=== PATIENT | male | born 1995 | race Caucasian/White ===

== ENCOUNTER 2016-11-12 00:55 | Emergency (ER) | payer OTHER ==
[2016-11-12 01:13] VITALS: BMI 26.6
--- NOTE | 2016-11-12 01:14 | PDOC ---
History of Present Illness - General History Source: Patient Exam Limitations: No Limitations - History of Present Illness Initial Comments: 11/12/16 01:29 The patient is a 21 year old male with no significant past medical history who presents to the ED with throat pain and fever for one day. The patient reports a fever of 102 F and throat pain secondary to swallowing. The patient also reports a sharp headache in the back of his head, loss of appetite, and arthralgia associated with present symptoms. He states his baby has otitis media at home. He reports taking tylenol and motrin throughout the day. Denies chest pain or shortness of breath. Denies nausea, vomiting, or diarrhea. Denies dysuria or changes in urinary frequency. Denies any other symptoms. <Deisi Auguste - Last Filed: 11/12/16 01:28> <Carol Choi - Last Filed: 11/12/16 05:02> - General Chief Complaint: SIRS, Suspected/Possible Stated Complaint: FEVER,HEADACE Time Seen by Provider: 11/12/16 01:07 Past History <Deisi Auguste - Last Filed: 11/12/16 01:28> - Psycho/Social/Smoking Cessation Hx Anxiety: Yes Suicidal Ideation: No Smoking Status: No Smoking History: Never smoked Have you smoked in the past 12 months: No Number of Cigarettes Smoked Daily: 0 Information on smoking cessation initiated: No Hx Alcohol Use: No Drug/Substance Use Hx: No Substance Use Type: None <Carol Choi - Last Filed: 11/12/16 05:02> - Past Medical History Allergies/Adverse Reactions: Allergies Allergy/AdvReac Type Severity Reaction Status Date / Time No Known Allergies Allergy Verified 11/12/16 01:10 Home Medications: Ambulatory Orders No Home Medications 0 dose .ROUTE UTDICT 05/24/12 Ibuprofen [Motrin -] 600 mg PO QID #28 tablet 04/13/16 Review of Systems - Review of Systems Able to Perform ROS?: Yes Comments:: 11/12/16 01:29 CONSTITUTIONAL: + fever, loss of appetite Absent: diaphoresis, generalized weakness, malaise HEENT: + throat pain Absent: rhinorrhea, nasal congestion, throat swelling, difficulty swallowing, mouth swelling, ear pain, eye pain, visual Changes CARDIOVASCULAR: Absent: chest pain, syncope, palpitations, irregular heart rate, lightheadedness , peripheral edema RESPIRATORY: Absent: cough, shortness of breath, dyspnea with exertion, orthopnea, wheezing, stridor, hemoptysis GASTROINTESTINAL: Absent: abdominal pain, abdominal distension, nausea, vomiting, diarrhea, constipation, melena, hematochezia GENITOURINARY: Absent: dysuria, frequency, urgency, hesitancy, hematuria, flank pain, genital pain MUSCULOSKELETAL: + arthralgia Absent: myalgia, joint swelling SKIN: Absent: rash, itching, pallor HEMATOLOGIC/IMMUNOLOGIC: Absent: easy bleeding, easy bruising, lymphadenopathy, frequent infections ENDOCRINE: Absent: unexplained weight gain, unexplained weight loss, heat intolerance, cold intolerance NEUROLOGIC: + headache Absent: focal weakness or paresthesias, dizziness, unsteady gait, seizure, mental status changes, bladder or bowel incontinence PSYCHIATRIC: Absent: anxiety, depression, suicidal or homicidal ideation, hallucinations. All Other Systems: Reviewed and Negative <Deisi Auguste - Last Filed: 11/12/16 01:28> *Physical Exam - Vital Signs Last Vital Signs Temp Pulse Resp BP Pulse Ox 102.5 F H 106 H 16 123/67 100 11/12/16 01:11 11/12/16 01:11 11/12/16 01:11 11/12/16 01:11 11/12/16 01:11 - Physical Exam Comments: 11/12/16 01:29 GENERAL: + Moderate distress, high fever. Awake and alert. HEENT: + Throat pain. Normocephalic, atraumatic. PERRLA, EOMI. No conjunctival pallor. Sclera are non-icteric. Moist mucous membranes. Oropharynx is clear. NECK: ,No neck stiffness, no pain with movement of neck. Full ROM. No JVD. Carotid pulses 2+ and symmetric, without bruits. No thyromegaly. NCo lymphadenopathy. CARDIOVASCULAR: Regular rate and rhythm. No murmurs, rubs, or gallops. Distal pulses are 2+ and symmetric. PULMONARY: No evidence of respiratory distress. Lungs clear to auscultation bilaterally. No wheezing, rales or rhonchi. ABDOMINAL: Soft. Non-tender. Non-distended. No rebound or guarding. No organomegaly. Normoactive bowel sounds. MUSCULOSKELETAL + arthralgia. Normal range of motion at all joints. No bony deformities or tenderness. No CVA tenderness. EXTREMITIES: No cyanosis. No clubbing. No edema. No calf tenderness. SKIN: Warm and dry. Normal capillary refill. No rashes. No jaundice. NEUROLOGICAL: Alert, awake, appropriate. Cranial nerves 2-12 intact. No deficits to light touch and temperature in face, upper extremities and lower extremities. No motor deficits in the in face, upper extremities and lower extremities. Normoreflexic in the upper and lower extremities. Normal speech. Toes are down- going bilaterally. Gait is normal without ataxia. PSYCHIATRIC: Cooperative. Good eye contact. Appropriate mood and affect. <Deisi Auguste - Last Filed: 11/12/16 01:28> - Vital Signs Last Vital Signs Temp Pulse Resp BP Pulse Ox 102.5 F H 106 H 16 123/67 100 11/12/16 01:11 11/12/16 01:11 11/12/16 01:11 11/12/16 01:11 11/12/16 01:11 <Carol Choi - Last Filed: 11/12/16 05:02> ED Treatment Course - Medications Given in the ED: ED Medications Discontinued Medications Generic Name Dose Route Start Last Admin Trade Name Freq PRN Reason Stop Dose Admin Acetaminophen 1,000 mg 11/12/16 01:19 11/12/16 01:26 Tylenol - PO 11/12/16 01:20 1,000 mg ONCE ONE Administration Ketorolac Tromethamine 30 mg 11/12/16 01:19 11/12/16 01:24 Toradol Injection - IVPUSH 11/12/16 01:20 30 mg ONCE ONE Administration Sodium Chloride 1,000 ml 11/12/16 01:23 11/12/16 01:24 Normal Saline - IV 11/12/16 01:24 1,000 ml ONCE ONE Administration <Deisi Auguste - Last Filed: 11/12/16 01:28> - LABORATORY CBC & Chemistry Diagram: 11/12/16 01:25 11/12/16 01:25 <Carol Choi - Last Filed: 11/12/16 05:02> Medical Decision Making - Medical Decision Making 11/12/16 02:11 Patient Name: Norman Ray THIS IS A PRELIMINARYREPORT FROM [facility] EXAM : CT brain without contrast IMAGES: 75 INDICATION: Rule out meningitis DATE OF SERVICE: 2016-11-12 01:39:04.0 COMPARISON: none FINDINGS: The ventricular system is midline and nondilated. The sulcal pattern is normal for the patient' s age. There is no bleed, mass, extra-axial fluid collection or mass effect. No skull fracture or skull lesion is identified. The visualized paranasal sinuses and mastoid air cells are clear. IMPRESSION: Normal exam. THIS DOCUMENT HAS BEEN ELECTRONICALLY SIGNED 11/12/16 05:01 Pt comes with fever and sore throat. His baby has an OM. [place] likely contracted the baby's illness. Pt has viral syndrome and complains of high fever and joint pains. His rapid strep is normal. Labs are normal, except for WBC 17+. He feels and looks vastly improved after analgesia and NSS 2000ml in the ER. <Carol Choi - Last Filed: 11/12/16 05:02> *DC/Admit/Observation/Transfer - Attestations Scribe Attestion: 11/12/16 01:29 Documentation prepared by Deisi Auguste, acting as medical and health services manager for Carol Choi MD <Deisi Auguste - Last Filed: 11/12/16 01:28> - Discharge Dispostion Admit: No <Carol Choi - Last Filed: 11/12/16 05:02> Diagnosis at time of Disposition: Acute viral syndrome - Discharge Dispostion Disposition: HOME Condition at time of disposition: Improved - Patient Instructions Printed Discharge Instructions: DI for Viral Syndrome Print Language: CYPRIOT - Post Discharge Activity Work/School Note: Back to Work
[2016-11-12] MEDS ORDERED: KETOROLAC TROMETHAMINE 30 MG/1 ML VIAL IVPUSH ONE (01:19)
[2016-11-12] MEDS ORDERED: ACETAMINOPHEN 500 MG TABLET (FP) PO ONE (01:19)
[2016-11-12] MEDS ORDERED: SODIUM CHLORIDE 0.9% 500 ML INFUS.BAG IV ONE (01:23)
[2016-11-12] MEDS ORDERED: KETOROLAC TROMETHAMINE 30 MG/1 ML VIAL ONE (01:25)
[2016-11-12] MEDS ORDERED: ACETAMINOPHEN INJECTION 100 ML IVPB ONE (01:25)
[2016-11-12 01:32] LABS: BASOPHIL 0.8 % (0-2.0); EOSINOPHIL 0.9 % (0-4.5); MCH 28.4 pg (25.7-33.7); MCHC 33.9 g/dl (32.0-35.9); MEAN CELL VOLUME 83.7 fl (80-96); MEAN PLT VOLUME 10.3 fl (7.5-11.1); NEUTROPHILS 79.4 % (42.8-82.8); PLATELET COUNT 152 K/MM3 (134-434); RDW 12.4 % (11.9-15.9)
[2016-11-12 01:59] LABS: ALBUMIN 3.8 g/dl (3.4-5.0); ALK PHOS 164 U/L (45-117); ANION GAP 11 (8-16); BILIRUBIN,TOTAL 0.6 mg/dL (0.2-1.0); CO2 26 mmol/L (21-32); COCKROFT - GAULT 99.95; CREATININE 1.2 mg/dL (0.7-1.3); GLUCOSE,RANDOM 133 mg/dL (74-106); SGOT/AST 17 U/L (15-37); SGPT/ALT 14 U/L (12-78); TOT PROT 7.2 g/dl (6.4-8.2)
[2016-11-12 02:29] LABS: INR 1.14 (0.82-1.09); PROTHROMBIN TIME (PATIENT) 12.6 SEC (9.98-11.88)
[2016-11-12 04:12] VITALS: BP 110/63; PULSE 74; TEMP 98.6
== END 2016-11-12 04:20 | disposition home or self-care (01) ==
LOC: JER 00:55
PROC: 3E0333Z Introduction of Anti-inflammatory into Peripheral Vein, Percutaneous Approach (ICD-10-PCS; principal; 2016-11-12)
DX: B34.9 Viral infection, unspecified (principal)
CPT/HCPCS: 36415; 70450-TC; 71020-TC; 80053; 83605; 85025; 85610; 85730; 87040; 87070; 87430; 96374; 99282-25

== ENCOUNTER 2016-11-13 11:42 | Emergency (ER) | payer OTHER ==
[2016-11-13 12:03] VITALS: BP 145/76; PULSE 81; TEMP 98.5; BMI 26.6
[2016-11-13] MEDS ORDERED: KETOROLAC TROMETHAMINE 60 MG/2 ML VIAL IM ONE (12:49)
[2016-11-13] MEDS ORDERED: KETOROLAC TROMETHAMINE 60 MG/2 ML VIAL ONE (12:51)
--- NOTE | 2016-11-13 12:52 | PDOC ---
History of Present Illness - General Chief Complaint: Cold Symptoms Stated Complaint: FEVER, COUGH, HEADACHE Time Seen by Provider: 11/13/16 12:14 History Source: Patient Exam Limitations: No Limitations - History of Present Illness Initial Comments: 11/13/16 12:49 21 yr male with c/o sore throat fever for 3 days. Pt states he was seen here had negative strep negative head CT, labs were done. Pt states he took tylenol this AM. no nvd, no chest pain or shortness of breath. no foreign travel. Pt was seen here last week for same had blood work and cxr , rap[place] trep done which was negative. pt denies dizzyness or vision changes. 11/13/16 18:44 Severity: reports: mild Past History - Past Medical History Allergies/Adverse Reactions: Allergies Allergy/AdvReac Type Severity Reaction Status Date / Time No Known Allergies Allergy Verified 11/13/16 12:03 Home Medications: Ambulatory Orders Azithromycin [Zithromax 250mg Tablets -] 250 mg PO UTDICT #6 tab 11/13/16 Fluticasone Prop 0.05% Nasal [Flonase -] 1 - 2 spray NS DAILY #1 spray.pump Other medical history: denies - Family Disease History Comment:: 11/13/16 12:50 none - Immunization History Immunization Up to Date: No - Psycho/Social/Smoking Cessation Hx Anxiety: Yes Suicidal Ideation: No Smoking Status: No Smoking History: Never smoked Have you smoked in the past 12 months: No Number of Cigarettes Smoked Daily: 0 Information on smoking cessation initiated: No Hx Alcohol Use: No Drug/Substance Use Hx: No Substance Use Type: None Respiratory Specific PMHX - Complaint Specific PMHX Angina: No Bronchitis: No Pneumonia: No Pulmonary Embolus: No TB (Tuberculosis): No Review of Systems - Review of Systems Able to Perform ROS?: Yes Comments:: 11/13/16 12:50 11/13/16 12:50 Is the patient limited Wolof proficient: No Constitutional: Yes: Symptoms Reported HEENTM: Yes: Symptoms Reported, Nose Congestion Respiratory: Yes: Symptoms reported, Cough Cardiac (ROS): No: Symptoms Reported ABD/GI: No: Symptoms Reported : No: Symptoms Reported Musculoskeletal: No: Symptoms Reported Integumentary: No: Symptoms Reported Neurological: No: Symptoms reported *Physical Exam - Vital Signs Last Vital Signs Temp Pulse Resp BP Pulse Ox 98.5 F 81 18 145/76 100 11/13/16 12:01 11/13/16 12:01 11/13/16 12:01 11/13/16 12:01 11/13/16 12:01 - Physical Exam General Appearance: Yes: Nourished, Appropriately Dressed HEENT: positive: EOMI, MARCE, Pharyngeal Erythema, Nasal Congestion. negative: Tonsillar Exudate, Tonsillar Erythema, Rhinorrhea, Sinus Tenderness Neck: positive: Supple. negative: Lymphadenopathy (R), Lymphadenopathy (L) Respiratory/Chest: positive: Lungs Clear, Normal Breath Sounds, Rhonchi ( scattered cleared with coughing ). 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pump Azithromycin [Zithromax 250mg Tablets -] 250 mg PO UTDICT #6 tab - Patient Instructions Printed Discharge Instructions: DI for Viral Upper Respiratory Infection -- Adult Additional Instructions: drink pleanty of water, increase your vitamin C and Zinc intake take motrin 600mg every 6hrs for pain or fever take the Zpack as directed for 5 days follow with your doctor or with the ENT doctor for follow up - Post Discharge Activity Work/School Note: Back to School, Back to Work
== END 2016-11-13 13:35 | disposition home or self-care (01) ==
LOC: JERFT 11:42
DX: J06.9 Acute upper respiratory infection, unspecified (principal); B97.89 Other viral agents as the cause of diseases classified elsewhere
CPT/HCPCS: 87070; 87430; 99281-25

== ENCOUNTER 2018-06-07 00:49 | Observation (INO) | payer OTHER ==
[2018-06-07 01:01] VITALS: TEMP 97.9; BMI 22.8
[2018-06-07] MEDS ORDERED: SODIUM CHLORIDE 1,000 ML IV STA (01:56)
[2018-06-07] MEDS ORDERED: FAMOTIDINE 20 MG/50 ML IVPB 20 MG/50 ML MG IVPB ONE ×2 (01:56→02:03)
[2018-06-07] MEDS ORDERED: methylPREDNISolone NA SUCC 125 MG/2 ML VIAL IVPB ONE (01:56)
--- NOTE | 2018-06-07 01:56 | PDOC ---
History of Present Illness - General Chief Complaint: Allergic Reaction Stated Complaint: ALLERGIC REACTION Time Seen by Provider: 06/07/18 01:55 History Source: Patient Exam Limitations: No Limitations - History of Present Illness Initial Comments: 06/07/18 02:21 Best Contact: PCP: Denies Pmhx:Denies Pshx:Denies Allergies:NKDA FH:0 Social Hx: Cigarettes/ Denies Alcohol/ social Drugs/Denies 23-year-old male presents to the ER with his parents complaining of a rash 2 days. 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 Patient states he noticed the hives spread to his cx/abdomen/back, BLE. Pt reports he comes to the ER tongiht when he noticed his upper lipand tongue was swollen. Patient denies fever, chills, nausea/vomiting, headache, dizziness, lightheadedness, facial pains, earache, sore throat, difficulty swallowing, neck pain/stiffness, back pains, chest pain, shortness of breath, abdominal pains, flank pains, urinary symptoms, Jeremi numbness or tingling sensation. Patient denies taking Benadryl or increases intake and fluids.Patient denies use of new medication, detergent, soap, cologne, food. Past History - Past Medical History Allergies/Adverse Reactions: Allergies Allergy/AdvReac Type Severity Reaction Status Date / Time No Known Allergies Allergy Verified 06/07/18 01:01 Home Medications: Ambulatory Orders Fluticasone Prop 0.05% Nasal [Flonase -] 1 - 2 spray NS DAILY #1 spray.pump Diphenhydramine HCl [Benadryl -] 50 mg PO Q6H #28 capsule 06/07/18 Ranitidine HCl [Zantac] 150 mg PO DAILY #5 tablet 06/07/18 predniSONE [Deltasone -] 60 mg PO DAILY #15 tablet 06/07/18 COPD: Yes - Immunization History Immunization Up to Date: Yes - Suicide/Smoking/Psychosocial Hx Smoking Status: No Smoking History: Never smoked Have you smoked in the past 12 months: No Number of Cigarettes Smoked Daily: 0 Information on smoking cessation initiated: No Hx Alcohol Use: No Drug/Substance Use Hx: No Substance Use Type: None Review of Systems - Review of Systems Able to Perform ROS?: Yes Comments:: 06/07/18 02:24 CONSTITUTIONAL: Absent: fever, chills, diaphoresis, generalized weakness, malaise, loss of appetite HEENT: Absent: rhinorrhea, nasal congestion, throat pain, throat swelling, difficulty swallowing, mouth swelling, ear pain, eye pain, visual Changes CARDIOVASCULAR: Absent: chest pain, loss of consciousness, palpitations, irregular heart rate, peripheral edema RESPIRATORY: Absent: cough, shortness of breath, dyspnea with exertion, orthopnea, wheezing, stridor, hemoptysis GASTROINTESTINAL: Absent: abdominal pain, abdominal distension, nausea, vomiting, diarrhea, constipation, melena, hematochezia GENITOURINARY: Absent: dysuria, frequency, urgency, hesitancy, hematuria, flank pain, genital pain MUSCULOSKELETAL: Absent: myalgia, arthralgia, joint swelling SKIN: +hives to neck, cx/ abd, back and legs Absent: itching, pallor HEMATOLOGIC/IMMUNOLOGIC: Absent: easy bleeding, easy bruising, lymphadenopathy, frequent infections ENDOCRINE: Absent: unexplained weight gain, unexplained weight loss, heat intolerance, cold intolerance NEUROLOGIC: Absent: headache, focal weakness or paresthesias, dizziness, unsteady gait, seizure, mental status changes, bladder or bowel incontinence Is the patient limited Uzbek proficient: No *Physical Exam - Vital Signs Last Vital Signs Temp Pulse Resp BP Pulse Ox 97.9 F 89 18 117/76 99 06/07/18 00:58 06/07/18 00:58 06/07/18 00:58 06/07/18 00:58 06/07/18 00:58 - Physical Exam Comments: 06/07/18 02:25 GENERAL: Well developed, well nourished. Awake and alert. No acute distress. HEENT: Normocephalic, atraumatic. PERRLA, EOMI. No conjunctival pallor. Sclera are non- icteric. Moist mucous membranes. Oropharynx is clear. NECK: Supple. Full ROM. No JVD. Carotid pulses 2+ and symmetric, without bruits. No thyromegaly. No lymphadenopathy. CARDIOVASCULAR: Regular rate and rhythm. No murmurs, rubs, or gallops. Distal pulses are 2+ and symmetric. PULMONARY: No evidence of respiratory distress. Lungs clear to auscultation bilaterally. No wheezing, rales or rhonchi. ABDOMINAL: Soft. Non-tender. Non-distended. No rebound or guarding. No organomegaly. Normoactive bowel sounds. MUSCULOSKELETAL Normal range of motion at all joints. No bony deformities or tenderness. No CVA tenderness. EXTREMITIES: No cyanosis. No clubbing. No edema. No calf tenderness. SKIN: +hives to right side of int neck, left upper abd, and right calf Negative lymphangitis Warm and dry. Normal capillary refill. No rashes. No jaundice. NEUROLOGICAL: Alert, awake, appropriate. Cranial nerves 2-12 intact. No deficits to light touch and temperature in face, upper extremities and lower extremities. No motor deficits in the in face, upper extremities and lower extremities. Normoreflexic in the upper and lower extremities. Normal speech. Toes are down- going bilaterally. Gait is normal without ataxia. PSYCHIATRIC: Cooperative. Good eye contact. Appropriate mood and affect. Moderate Sedation - Procedure Monitoring Vital Signs: Procedure Monitoring Vital Signs Temperature 97.9 F 06/07/18 00:58 Pulse Rate 89 06/07/18 00:58 Respiratory Rate 18 06/07/18 00:58 Blood Pressure 117/76 06/07/18 00:58 O2 Sat by Pulse Oximetry (%) 99 06/07/18 00:58 ED Treatment Course - LABORATORY CBC & Chemistry Diagram: 06/07/18 04:18 06/07/18 04:18 *DC/Admit/Observation/Transfer Diagnosis at time of Disposition: Hives of unknown origin, Tongue swelling Allergic reaction Qualifiers: Encounter type: initial encounter Qualified Code(s): T78.40XA - Allergy, unspecified, initial encounter - Discharge Dispostion Condition at time of disposition: Guarded Decision to Admit order: Yes - Prescriptions - Referrals - Patient Instructions - Post Discharge Activity Progress Note - Progress Note Progress Note: 0346hrs: Pt states his tongue still feels swollen along with his upper lip. 0421hrs: admit to hospitalist/obs
[2018-06-07] MEDS ORDERED: methylPREDNISolone NA SUCC 125 MG/2 ML VIAL ONE ×2 (02:03→02:04)
[2018-06-07 04:37] LABS: BASO % 0.5 % (0-2.0); EOS % 0.9 % (0-4.5); LYMPH % 18.8 % (8-40); MCH 29.6 pg (25.7-33.7); MCHC 35.6 g/dl (32.0-35.9); MEAN PLT VOLUME 10.5 fl (7.5-11.1); MONO % 2.3 % (3.8-10.2); NEUT % 77.5 % (42.8-82.8); PLATELET COUNT 193 K/MM3 (134-434); RBC 5.06 M/mm3 (4.00-5.60); RDW 12.4 % (11.9-15.9); WHITE BLOOD COUNT 9.8 K/mm3 (4.0-10.0)
[2018-06-07 05:04] LABS: ALBUMIN 3.3 g/dl (3.4-5.0); ALK PHOS 149 U/L (45-117); ANION GAP 6 MMOL/L (8-16); BILIRUBIN,TOTAL 0.3 mg/dL (0.2-1); BLOOD UREA NITROGEN 13 mg/dL (7-18); CALCIUM 8.3 mg/dL (8.5-10.1); CHLORIDE 109 mmol/L (98-107); CO2 25 mmol/L (21-32); CREATININE 1.1 mg/dL (0.55-1.3); GLUCOSE,RANDOM 124 mg/dL (74-106); POTASSIUM 4.6 mmol/L (3.5-5.1); SGOT/AST 25 U/L (15-37); SGPT/ALT 21 U/L (13-61); SODIUM 140 mmol/L (136-145); TOT PROT 6.5 g/dl (6.4-8.2)
--- NOTE | 2018-06-07 05:09 | PN ---
Teaching Attending Note Name of Resident: Chelsea Lowry ATTENDING PHYSICIAN STATEMENT I saw and evaluated the patient. I reviewed the resident's note and discussed the case with the resident. I agree with the resident's findings and plan as documented. SUBJECTIVE: Patient is a 23-year-old man with no significant PMH who presents to the ER with his parents complaining of a rash 2 days. 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 Patient states he noticed the hives spread to his chest/abdomen/back, BLE. Came to the ER tongiht when he noticed his upper lip and tongue was swollen. Patient denies fever, chills, nausea/vomiting , headache, dizziness, lightheadedness, facial pains, earache, sore throat, difficulty swallowing, neck pain/stiffness, back pains, chest pain, shortness of breath, abdominal pains, flank pains, urinary symptoms, numbness or tingling sensation. Patient denies taking Benadryl or increases intake and fluids.Patient denies use of new medication, detergent, soap, cologne, food. OBJECTIVE: Alert Vital Signs Period Temp Pulse Resp BP Sys/Manuel Pulse Ox Last 24 Hr 97.9 F 89 18 117/76 98-99 HEENT: No Jaundice, eye redness or discharge, PERRLA, EOMI. Normocephalic, atraumatic. External ears are normal and hearing is grossly intact. No nasal discharge. Neck: Supple, nontender. No palpable adenopathy or thyromegaly. No JVD. Mild anterior neck rash. Chest: Good effort. Clear to auscultation and percussion. Heart: Regular. No S3, rub or murmur Abdomen: Not distended, soft, nontender and no HSM. No rebound or guarding. Normoactive bowel sounds. Ext: Peripheral pulses intact. No leg edema. Skin: Warm and dry. No petechiae, rash or ecchymosis. Neuro: Alert. Oriented x3. CN 2-12 grossly intact. Sensation grossly intact in all four extremities and DTR are symmetric. Home Medications Medication Instructions Recorded Fluticasone Prop 0.05% Nasal 1 - 2 spray NS DAILY #1 spray.pump 05/30/17 [Flonase -] Diphenhydramine HCl [Benadryl -] 50 mg PO Q6H #28 capsule 06/07/18 Ranitidine HCl [Zantac] 150 mg PO DAILY #5 tablet 06/07/18 predniSONE [Deltasone -] 60 mg PO DAILY #15 tablet 06/07/18 Abnormal Lab Results 06/07/18 06/07/18 04:18 04:18 Monocytes % 2.3 L Chloride 109 H Anion Gap 6 L Random Glucose 124 H Calcium 8.3 L Alkaline Phosphatase 149 H Albumin 3.3 L ASSESSMENT AND PLAN: 1. Allergic Reaction - The inciting agent remains unclear. ESR, C reactive protein and LFTs are normal. C4 level pending. He responded well o the intial dose of solumedrol, benadrl and pepcid in the ER. By the time i saw him he was comfortable - tongue and lip edema resolved. Will continue IV fluids, benadryl and prednisone. Urine toxicology screen is pending. Refer to performance specialist upon discharge. 2. DVT prophylaxis - Lovenox 40 mg SQ q 24 hours. 3. Advance directives - Full code
[2018-06-07 05:40] LABS: URINE APPEARANCE CLEAR; URINE BILIRUBIN NEGATIVE (<2.0 mg/dL); URINE COLOR COLORLESS; URINE GLUCOSE (UA) NEGATIVE (NEGATIVE); URINE KETONE NEGATIVE (NEGATIVE); URINE LEUK ESTERASE NEGATIVE (NEGATIVE); URINE NITRITE NEGATIVE (NEGATIVE); URINE PROTEIN NEGATIVE (NEGATIVE); URINE UROBILINOGEN NEGATIVE mg/dL (0.2-1.0)
--- NOTE | 2018-06-07 05:59 | HP ---
CHIEF COMPLAINT: rash, swollen lips PCP: none HISTORY OF PRESENT ILLNESS: The patient is a 23 year old male with no PMH that presented to ED complaining of rash that started 2 days ago while he was at work. He was in his usual state of health, when around 11 AM on , while he was welding, he noticed rash on his neck and itching. The patient developed hives all over his body, but continued to work. The patient rash didn't improved so he decided to come to the hospital overnight. On the way to ED, he noticed swollen lips. When I saw the patient in Emergency Room, he was only complaining of swollen lips, his rash disappeared, denied itching. He denies allergies, never had similar rash in the past, denies exposures to detergents, changing housing in the past weeks , no other people around him with similar complaints, pets. The patient denies SOB, difficulty swallowing, chest pain, dizziness. 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 Family History: parents: healthy 2 children: healthy Allergies No Known Allergies Allergy (Verified 06/07/18 01:01) HOME MEDICATIONS: Home Medications Medication Instructions Recorded Fluticasone Prop 0.05% Nasal 1 - 2 spray NS DAILY #1 spray.pump 11/13/16 [Flonase -] Diphenhydramine HCl [Benadryl -] 50 mg PO Q6H #28 capsule 06/07/18 Ranitidine HCl [Zantac] 150 mg PO DAILY #5 tablet 06/07/18 predniSONE [Deltasone -] 60 mg PO DAILY #15 tablet 06/07/18 REVIEW OF SYSTEMS CONSTITUTIONAL: Absent: fever, chills, diaphoresis, generalized weakness, malaise, loss of appetite, weight change HEENT: mouth swelling Absent: rhinorrhea, nasal congestion, throat pain, throat swelling, difficulty swallowing, ear pain, eye pain, visual changes CARDIOVASCULAR: Absent: chest pain, syncope, palpitations, irregular heart rate, lightheadedness , peripheral edema RESPIRATORY: Absent: cough, shortness of breath, dyspnea with exertion, orthopnea, wheezing, stridor GASTROINTESTINAL: Absent: abdominal pain, abdominal distension, nausea, vomiting, diarrhea, constipation GENITOURINARY: Absent: dysuria, frequency, urgency, hesitancy, hematuria, flank pain, genital pain MUSCULOSKELETAL: Absent: myalgia, arthralgia, joint swelling, back pain, neck pain SKIN: Absent: rash, itching, pallor HEMATOLOGIC/IMMUNOLOGIC: Absent: easy bleeding, easy bruising, lymphadenopathy, frequent infections ENDOCRINE: Absent: unexplained weight gain, unexplained weight loss NEUROLOGIC: Absent: headache, focal weakness or paresthesias, dizziness, unsteady gait PSYCHIATRIC: Absent: anxiety, depression PHYSICAL EXAMINATION Vital Signs - 24 hr 06/07/18 06/07/18 00:58 04:25 Temperature 97.9 F Pulse Rate 89 Respiratory 18 Rate Blood Pressure 117/76 O2 Sat by Pulse 99 98 Oximetry (%) GENERAL: Awake, alert, and fully oriented, in no acute distress. HEAD: Normal with no signs of trauma. EYES: Pupils equal, round and reactive to light, extraocular movements intact, sclera anicteric, conjunctiva clear. EARS, NOSE, THROAT: Ears normal, nares patent, oropharynx clear without exudates. Moist mucous membranes. NECK: Normal range of motion, supple without lymphadenopathy, JVD, or masses. LUNGS: Breath sounds equal, clear to auscultation bilaterally. No wheezes, and no crackles. No accessory muscle use. HEART: Regular rate and rhythm, normal S1 and S2 without murmur, rub or gallop. ABDOMEN: Soft, nontender, not distended, normoactive bowel sounds, no guarding, no rebound, no masses. MUSCULOSKELETAL: Normal range of motion at all joints. No bony deformities or tenderness. UPPER EXTREMITIES: No peripheral edema. LOWER EXTREMITIES: No peripheral edema. NEUROLOGICAL: Non focal, normal speech. Normal gait. PSYCHIATRIC: Cooperative. Good eye contact. Appropriate mood and affect. SKIN: Warm, dry, normal turgor, no rashes. Laboratory Results - last 24 hr 06/07/18 06/07/18 06/07/18 04:18 04:18 04:25 WBC 9.8 RBC 5.06 Hgb 15.0 Hct 42.0 MCV 83.0 MCH 29.6 MCHC 35.6 RDW 12.4 Plt Count 193 D MPV 10.5 Absolute Neuts (auto) 7.6 Neutrophils % 77.5 Lymphocytes % 18.8 D Monocytes % 2.3 L Eosinophils % 0.9 Basophils % 0.5 Nucleated RBC % 0 ESR Sodium 140 Potassium 4.6 Chloride 109 H Carbon Dioxide 25 Anion Gap 6 L BUN 13 Creatinine 1.1 Creat Clearance w eGFR > 60 Random Glucose 124 H Calcium 8.3 L Total Bilirubin 0.3 AST 25 ALT 21 Alkaline Phosphatase 149 H C-Reactive Protein Total Protein 6.5 Albumin 3.3 L Urine Color Colorless Urine Appearance Clear Urine pH 5.0 D Ur Specific [place] 1.009 L Urine Protein Negative Urine Glucose (UA) Negative Urine Ketones Negative Urine Blood Negative Urine Nitrite Negative Urine Bilirubin Negative Urine Urobilinogen Negative Ur Leukocyte Esterase Negative 06/07/18 06/07/18 04:28 04:28 WBC RBC Hgb Hct MCV MCH MCHC RDW Plt Count MPV Absolute Neuts (auto) Neutrophils % Lymphocytes % Monocytes % Eosinophils % Basophils % Nucleated RBC % ESR 2 Sodium Potassium Chloride Carbon Dioxide Anion Gap BUN Creatinine Creat Clearance w eGFR Random Glucose Calcium Total Bilirubin AST ALT Alkaline Phosphatase C-Reactive Protein < 0.3 Total Protein Albumin Urine Color Urine Appearance Urine pH Ur Specific [place] Urine Protein Urine Glucose (UA) Urine Ketones Urine Blood Urine Nitrite Urine Bilirubin Urine Urobilinogen Ur Leukocyte Esterase ASSESSMENT/PLAN: The patient is a 23 year old male with no PMH that presented with rash for 2 days and swollen lips. He is admitted for allergic reaction. Allergic reaction: -hives, swollen lips, unknown trigger, first episode -given Solu-medrol 125 mg IV, Pepcid and Benadryl 50 mg IV -symptoms improved around 4 hrs later -normal labs, UA neg, U tox neg -ESR, CRP neg -C4 complement pending -CXR pending -will continue Prednisone 60 mg daily, Benadryl 25 mg PO q6h F/E/N: no/no changes/NPO for now, still swollen lips DVT PPX: Heparin sq Dispo: obs med surg Problem List - Problem (1) Allergic reaction Code(s): T78.40XA - ALLERGY, UNSPECIFIED, INITIAL ENCOUNTER Qualifiers: Encounter type: initial encounter Qualified Code(s): T78.40XA - Allergy, unspecified, initial encounter (2) Hives of unknown origin Code(s): L50.9 - URTICARIA, UNSPECIFIED Visit type - Emergency Visit Emergency Visit: Yes ED Registration Date: 06/07/18 Care time: The patient presented to the Emergency Department on the above date and was hospitalized for further evaluation of their emergent condition. - New Patient This patient is new to me today: Yes Date on this admission: 06/07/18 - Critical Care Critical Care patient: No
[2018-06-07] MEDS ORDERED: HEPARIN NA (PORCINE) 5,000 UNITS/ML 1ML VIAL SQ SCH (06:00)
[2018-06-07] MEDS ORDERED: diphenhydrAMINE HCL 25 MG CAPSULE (FP) PO PRN (06:01)
[2018-06-07 06:22] LABS: COCAINE, UR NEGATIVE ng/ml (CUTOFF=300); METHADONE, UR NEGATIVE ng/ml (CUTOFF=300); OPIATES, URI NEGATIVE ng/ml (CUTOFF=300); PHENCYCLIDINE,URINE NEGATIVE ng/ml (CUTOFF=25); URINE AMPHETAMINES NEGATIVE ng/ml (CUTOFF=500); URINE BARBITURATES NEGATIVE ng/ml (CUTOFF=200); URINE BENZODIAZEPINES NEGATIVE ng/ml (CUTOFF=200)
[2018-06-07 06:39] VITALS: BP 127/68; PULSE 68
[2018-06-07] MEDS ORDERED: HEPARIN NA (PORCINE) 5,000 UNITS/ML 1ML VIAL ONE (06:44)
--- NOTE | 2018-06-07 09:29 | DS ---
Physical Exam: SUBJECTIVE: Patient seen and examined Patient is feeling better, stated that all his rash is gone, lips back to his normal size. No throat closing when he had the reaction. able to swallow without any difficulty. Does not know what caused it since he ate his normal daily food. OBJECTIVE: Initial Vital Signs Temp Pulse Resp BP Pulse Ox 97.9 F 89 18 117/76 99 06/07/18 00:58 06/07/18 00:58 06/07/18 00:58 06/07/18 00:58 06/07/18 00:58 Vital Signs Temperature 97.9 F 06/07/18 06:39 Pulse Rate 68 06/07/18 06:39 Respiratory Rate 20 06/07/18 06:39 Blood Pressure 127/68 06/07/18 06:39 O2 Sat by Pulse Oximetry (%) 98 06/07/18 06:39 PHYSICAL EXAM GENERAL: The patient is awake, alert, and fully oriented, in no acute distress. HEAD: Normal with no signs of trauma. EYES: PERRL, extraocular movements intact, sclera anicteric, conjunctiva clear. ENT: Ears normal, oropharynx clear without exudates, moist mucous membranes. Lips back to his normal as per patient. NECK: Trachea midline, full range of motion, supple. LUNGS: Breath sounds equal, clear to auscultation bilaterally, no wheezes, no crackles, no accessory muscle use. HEART: Regular rate and rhythm, S1, S2 without murmur, rub or gallop. ABDOMEN: Soft, nontender, nondistended, normoactive bowel sounds, no guarding, no rebound, no hepatosplenomegaly, no masses. EXTREMITIES: 2+ pulses, warm, well-perfused, no edema. NEUROLOGICAL: Cranial nerves II through XII grossly intact. Normal speech, gait not observed. PSYCH: Normal mood, normal affect. SKIN: Warm, dry, normal turgor, no rashes or lesions noted. LABS Laboratory Results - last 24 hr 06/07/18 06/07/18 06/07/18 04:18 04:18 04:25 WBC 9.8 RBC 5.06 Hgb 15.0 Hct 42.0 MCV 83.0 MCH 29.6 MCHC 35.6 RDW 12.4 Plt Count 193 D MPV 10.5 Absolute Neuts (auto) 7.6 Neutrophils % 77.5 Lymphocytes % 18.8 D Monocytes % 2.3 L Eosinophils % 0.9 Basophils % 0.5 Nucleated RBC % 0 ESR Sodium 140 Potassium 4.6 Chloride 109 H Carbon Dioxide 25 Anion Gap 6 L BUN 13 Creatinine 1.1 Creat Clearance w eGFR > 60 Random Glucose 124 H Calcium 8.3 L Total Bilirubin 0.3 AST 25 ALT 21 Alkaline Phosphatase 149 H C-Reactive Protein Total Protein 6.5 Albumin 3.3 L Urine Color Colorless Urine Appearance Clear Urine pH 5.0 D Ur Specific [place] 1.009 L Urine Protein Negative Urine Glucose (UA) Negative Urine Ketones Negative Urine Blood Negative Urine Nitrite Negative Urine Bilirubin Negative Urine Urobilinogen Negative Ur Leukocyte Esterase Negative Opiates Screen Methadone Screen Barbiturate Screen Phencyclidine Screen Ur Amphetamines Screen MDMA (Ecstasy) Screen Benzodiazepines Screen Cocaine Screen U Marijuana (THC) Screen 06/07/18 06/07/18 06/07/18 04:25 04:28 04:28 WBC RBC Hgb Hct MCV MCH MCHC RDW Plt Count MPV Absolute Neuts (auto) Neutrophils % Lymphocytes % Monocytes % Eosinophils % Basophils % Nucleated RBC % ESR 2 Sodium Potassium Chloride Carbon Dioxide Anion Gap BUN Creatinine Creat Clearance w eGFR Random Glucose Calcium Total Bilirubin AST ALT Alkaline Phosphatase C-Reactive Protein < 0.3 Total Protein Albumin Urine Color Urine Appearance Urine pH Ur Specific [place] Urine Protein Urine Glucose (UA) Urine Ketones Urine Blood Urine Nitrite Urine Bilirubin Urine Urobilinogen Ur Leukocyte Esterase Opiates Screen Negative Methadone Screen Negative Barbiturate Screen Negative Phencyclidine Screen Negative Ur Amphetamines Screen Negative MDMA (Ecstasy) Screen Negative Benzodiazepines Screen Negative Cocaine Screen Negative U Marijuana (THC) Screen Negative HOSPITAL COURSE: Date of Admission:06/07/18 Date of Discharge: 06/07/18 The patient is a 23 year old male with no PMHx presented with rash for 2 days and swollen lips. He is admitted for allergic reaction. Patient was given Solu-medrol IV and benadryl, all his symptoms improved, lips back to his normal, no anaphylaxis. # Allergic reaction: unknown trigger, first episode, esr,crp within normal range. Will discharge the patient home on prednisone tapered dose, pepcid, and epipen to carry it with him all the time, instructions were given, also suggested to see an application penetration tester for possible identification of the trigger. discharge time 35m. Minutes to complete discharge: 35 Discharge Summary Reason For Visit: ALLERGIC REACTION Current Active Problems Allergic reaction (Acute) Hives of unknown origin (Acute) Tongue swelling (Acute) Condition: Guarded - Instructions Diet, Activity, Other Instructions: Take prednisone 60 mg daily for 5 days Take Zantac 150 mg daily for 5 days Take Benadryl at night/50 mg to help with your itch Review take Benadryl, be sure not to operate a vehicle or heavy machinery because you might be drowsy Zyrtec she be taken in the morning for the itch Return back to the ER for severe/persistent or worsening symptoms Follow-up with the medical practice manager listed on the discharge this week Referrals: Rylee Gonzalez MD [Staff Physician] - - Home Medications Comprehensive Discharge Medication List: Ambulatory Orders Fluticasone Prop 0.05% Nasal [Flonase -] 1 - 2 spray NS DAILY #1 spray.pump Diphenhydramine HCl [Benadryl -] 50 mg PO Q6H #28 capsule 06/07/18 Ranitidine HCl [Zantac] 150 mg PO DAILY #5 tablet 06/07/18 predniSONE [Deltasone -] 60 mg PO DAILY #15 tablet 06/07/18 This patient is new to me today: Yes Date on this admission: 06/07/18 Emergency Visit: Yes ED Registration Date: 06/07/18 Care time: The patient presented to the Emergency Department on the above date and was hospitalized for further evaluation of their emergent condition. Critical Care patient: No - Discharge Referral Referred to [facility] No Physician Referral: Steve Merlos MD ([facility])
[2018-06-07] MEDS ORDERED: predniSONE 20 MG TABLET (UD) PO SCH (14:00)
--- NOTE | 2018-06-07 15:44 | EKG ---
Test Reason : Blood Pressure : / mmHG Vent. Rate : 059 BPM Atrial Rate : 059 BPM P-R Int : 148 ms QRS Dur : 100 ms QT Int : 400 ms P-R-T Axes : 029 056 039 degrees QTc Int : 396 ms SINUS BRADYCARDIA OTHERWISE NORMAL ECG NO PREVIOUS ECGS AVAILABLE Confirmed by LAURI FROST MD ([id number]) on 06/07/2018 3:43:53 PM Referred By: Confirmed By:LAURI FROST MD
== END 2018-06-07 09:43 | disposition home or self-care (01) ==
LOC: JER 00:49 → JERBED 04:10 → INTOOBSV 04:10
PROVIDERS: ADMIT Internal Medicine; ATTEND Internal Medicine
PROC: 3E033GC Introduction of Other Therapeutic Substance into Peripheral Vein, Percutaneous Approach (ICD-10-PCS; principal; 2018-06-07)
PROC: 3E013GC Introduction of Other Therapeutic Substance into Subcutaneous Tissue, Percutaneous Approach (ICD-10-PCS; 2018-06-07)
PROC: 3E0337Z Introduction of Electrolytic and Water Balance Substance into Peripheral Vein, Percutaneous Approach (ICD-10-PCS; 2018-06-07)
DX: T78.40XA Allergy, unspecified, initial encounter (principal); L50.9 Urticaria, unspecified; R22.0 Localized swelling, mass and lump, head; X58.XXXA Exposure to other specified factors, initial encounter; Y93.9 Activity, unspecified; Y92.9 Unspecified place or not applicable
CPT/HCPCS: 36415; 71046-TC-FY; 80053; 80307; 81003; 85025; 85651; 86140; 86160; 93005; 93010; 96361; 96365; 96372; 96375; 99283-25; G0378; J1644; J7030

== ENCOUNTER 2018-12-12 14:49 | Emergency (ER) | payer OTHER ==
--- NOTE | 2018-12-12 15:02 | PDOC ---
Rapid Medical Evaluation Chief Complaint: Wound Time Seen by Provider: 12/12/18 15:01 Medical Evaluation: Allergies Allergy/AdvReac Type Severity Reaction Status Date / Time No Known Allergies Allergy Verified 12/12/18 15:00 12/12/18 15:01 I have performed a brief in-person evaluation of this patient. The patient presents with a chief complaint of: fever and ?unknown bite to arm Pertinent physical exam findings:stable and in NAD, non-focal I have ordered the following:labs The patient will proceed to the ED for further evaluation.
[2018-12-12 15:23] VITALS: BMI 28.1
--- NOTE | 2018-12-12 15:28 | PDOC ---
History of Present Illness <Katie Alfonso - Last Filed: 12/12/18 16:26> - History of Present Illness Initial Comments: 12/12/18 15:27 Mr. Ray is a 23 yo male w/ no pmh who presents for evaluation of L arm bug bite that occurred last weekend. Patient reports he has had pain at site and associated fevers. Denies any other symptoms. The patient denies chest pain, shortness of breath, headache and dizziness. Denies chills, nausea, vomit, diarrhea and constipation. Denies dysuria, frequency, urgency and hematuria. <Rey Jay - Last Filed: 12/12/18 16:35> - General Chief Complaint: Wound Stated Complaint: FEVER/HEADACHE Time Seen by Provider: 12/12/18 15:01 Past History <Katie Alfonso - Last Filed: 12/12/18 16:26> - Past Medical History COPD: Yes - Immunization History Immunization Up to Date: No - Suicide/Smoking/Psychosocial Hx Smoking Status: No Smoking History: Never smoked Have you smoked in the past 12 months: No Number of Cigarettes Smoked Daily: 0 Information on smoking cessation initiated: No Hx Alcohol Use: No Drug/Substance Use Hx: No Substance Use Type: None <Rey Jay - Last Filed: 12/12/18 16:35> - Past Medical History Allergies/Adverse Reactions: Allergies Allergy/AdvReac Type Severity Reaction Status Date / Time No Known Allergies Allergy Verified 12/12/18 15:00 Home Medications: Ambulatory Orders Fluticasone Prop 0.05% Nasal [Flonase -] 1 - 2 spray NS DAILY #1 spray.pump Cetirizine HCl [Zyrtec Rapidly Dissolving Tab -] 10 mg PO DAILY #30 tab Epinephrine [Epipen 2-Jerry] 0.3 mg IJ ASDIR #1 kit 06/07/18 Ranitidine HCl [Zantac] 150 mg PO BID #12 tablet 06/07/18 predniSONE [Deltasone -] See Taper PO ASDIR #10 tab 06/07/18 Cephalexin Monohydrate [Keflex -] 500 mg PO Q6H #20 capsule 12/12/18 Sulfamethoxazole/Trimethoprim [Bactrim Ds -] 1 tab PO BID #10 tablet 12/12/18 Review of Systems - Review of Systems Comments:: 12/12/18 15:28 GENERAL/CONSTITUTIONAL:+Generalized fevers over time period. No weakness. HEAD, EYES, EARS, NOSE AND THROAT: No change in vision. No ear pain or discharge. No sore throat. CARDIOVASCULAR: No chest pain or shortness of breath RESPIRATORY: No cough, wheezing, or hemoptysis. GASTROINTESTINAL: No nausea, vomiting, diarrhea or constipation. GENITOURINARY: No dysuria, frequency, or change in urination. MUSCULOSKELETAL: +Bug bite to L AC as described. No joint or muscle swelling or pain. No neck or back pain. SKIN: No rash NEUROLOGIC: No headache, vertigo, loss of consciousness, or change in strength/ sensation. ENDOCRINE: No increased thirst. No abnormal weight change HEMATOLOGIC/LYMPHATIC: No anemia, easy bleeding, or history of blood clots. ALLERGIC/IMMUNOLOGIC: No hives or skin allergy. <Rey Jay - Last Filed: 12/12/18 16:35> *Physical Exam - Vital Signs Last Vital Signs Temp Pulse Resp BP Pulse Ox 100.1 F H 84 16 135/68 99 12/12/18 15:00 12/12/18 15:00 12/12/18 15:00 12/12/18 15:00 12/12/18 15:00 <Katie Alfonso - Last Filed: 12/12/18 16:26> - Vital Signs Last Vital Signs Temp Pulse Resp BP Pulse Ox 100.1 F H 84 16 135/68 99 12/12/18 15:00 12/12/18 15:00 12/12/18 15:00 12/12/18 15:00 12/12/18 15:00 - Physical Exam Comments: 12/12/18 15:28 GENERAL: Awake, alert, and fully oriented, in no acute distress HEAD: No signs of trauma, normocephalic, atraumatic EYES: PERRLA, EOMI, sclera anicteric, conjunctiva clear ENT: Auricles normal inspection, hearing grossly normal, nares patent, oropharynx clear without exudates. Moist mucosa NECK: Normal ROM, supple, no lymphadenopathy, JVD, or masses LUNGS: No distress, speaks full sentences, clear to auscultation bilaterally HEART: Regular rate and rhythm, normal S1 and S2, no murmurs, rubs or gallops, peripheral pulses normal and equal bilaterally. ABDOMEN: Soft, nontender, normoactive bowel sounds. No guarding, no rebound. No masses EXTREMITIES: +Small lesion approx. 1Normal inspection, Normal range of motion, no edema. No clubbing or cyanosis. NEUROLOGICAL: Cranial nerves II through XII grossly intact. Normal speech, normal gait, no focal sensorimotor deficits SKIN: Warm, Dry, normal turgor, no rashes or lesions noted. <Rey Jay - Last Filed: 12/12/18 16:35> ED Treatment Course - Medications Given in the ED: ED Medications Discontinued Medications Generic Name Dose Route Start Last Admin Trade Name Freq PRN Reason Stop Dose Admin Cephalexin HCl 500 mg 12/12/18 15:52 12/12/18 16:21 Keflex - PO 12/12/18 15:53 500 mg ONCE ONE Administration Trimethoprim/Sulfamethoxazole 1 each 12/12/18 15:52 12/12/18 16:21 Bactrim Ds - PO 12/12/18 15:53 1 each ONCE ONE Administration <Katie Alfonso - Last Filed: 12/12/18 16:26> Medical Decision Making - Medical Decision Making 12/12/18 16:34 Mr. Ray is a 23 yo male w/ no pmh who presents for evaluation of wound w/ appearance of infected bug bite. Patient proscribed oral ABX and will f/u as needed. No concern for acute process. Discharging to home. <Rey Jay - Last Filed: 12/12/18 16:35> *DC/Admit/Observation/Transfer - Discharge Dispostion Decision to Admit order: No <Katie Alfonso - Last Filed: 12/12/18 16:26> <Rey Jay - Last Filed: 12/12/18 16:35> Diagnosis at time of Disposition: Cellulitis Qualifiers: Site of cellulitis: extremity Site of cellulitis of extremity: upper extremity Laterality: left Qualified Code(s): L03.114 - Cellulitis of left upper limb - Discharge Dispostion Disposition: HOME Condition at time of disposition: Stable - Prescriptions Prescriptions: Cephalexin Monohydrate [Keflex -] 500 mg PO Q6H #20 capsule Sulfamethoxazole/Trimethoprim [Bactrim Ds -] 1 tab PO BID #10 tablet - Patient Instructions Printed Discharge Instructions: DI for Cellulitis -- Adult Print Language: COMORAN
[2018-12-12] MEDS ORDERED: SULFAMETHOXAZOLE/TRIMETHOPRIM 800MG/160MG D.S. TABLET PO ONE (15:52)
[2018-12-12] MEDS ORDERED: CEPHALEXIN MONOHYDRATE 500 MG CAPSULE (UD) PO ONE (15:52)
--- NOTE | 2018-12-12 16:13 | PDOC ---
Documentation entered by Maribel Crowell SCRIBE, acting as scribe for Katie Alofnso MD. Katie Alfonso MD: This documentation has been prepared by the [place] Mackenzie, SCRIBE, under my direction and personally reviewed by me in its entirety. I confirm that the documentation accurately reflects all work , treatment, procedures, and medical decision making performed by me. Attending Attestation - Resident Resident Name: Rey Jay - ED Attending Attestation I have performed the following: I have examined & evaluated the patient, The case was reviewed & discussed with the resident, I agree w/resident's findings & plan, Exceptions are as noted - HPI HPI: The patient is a 24 year old male, with no significant PMH who presents to the emergency department with a bug bite on his left arm sustained last weekend. Patient states he has had pain localized to the site of the bite and notes subjective fevers this week. The patient denies chest pain, shortness of breath, headache and dizziness. Denies chills, nausea, vomiting, diarrhea and constipation. Denies dysuria, frequency, urgency and hematuria. Allergies: NKDA Past surgical history: None reported Social history: None reported 12/12/18 16:02 - Physicial Exam PE: GENERAL: Awake, alert, and fully oriented, in no acute distress HEAD: No signs of trauma EYES: PERRLA, EOMI, sclera anicteric, conjunctiva clear EXTREMITIES: L arm with small open lesion in the antecubital fossa, with surrounding induration and erythema, no fluctuance. Slight drainage, clear. Normal range of motion, no edema. Remainder of extremities with no clubbing or cyanosis. No cords, erythema, or tenderness NEUROLOGICAL: Cranial nerves II through XII grossly intact. Normal speech, normal gait. Motor and sensation intact SKIN: Warm, Dry, normal turgor, no rashes or lesions except as noted above. - Medical Decision Making Will place on abx, as the lesion has clearly opened and drained prior to arrival , but he continues to have erythema and a low grade temp. No other infected lesions noted.
[2018-12-12] MEDS ORDERED: CEPHALEXIN MONOHYDRATE 500 MG CAPSULE (UD) ONE (16:18)
[2018-12-12] MEDS ORDERED: SULFAMETHOXAZOLE/TRIMETHOPRIM 800MG/160MG D.S. TABLET ONE (16:19)
[2018-12-12 16:44] VITALS: BP 128/72; PULSE 75; TEMP 99.8
== END 2018-12-12 16:40 | disposition home or self-care (01) ==
LOC: JER 14:49
DX: S50.862A Insect bite (nonvenomous) of left forearm, initial encounter (principal); L03.114 Cellulitis of left upper limb; W57.XXXA Bitten or stung by nonvenomous insect and other nonvenomous arthropods, initial encounter; Y93.89 Activity, other specified; Y92.89 Other specified places as the place of occurrence of the external cause; Y99.8 Other external cause status
CPT/HCPCS: 99281-25